=== PATIENT | male | born 1935 | race African-American/Black ===

== ENCOUNTER 2016-12-09 22:23 | Emergency (ER) | payer MEDICARE, BC ==
[2016-12-09] MEDS ORDERED: PREDNISONE 20 MG TABLET PO ONE (23:54)
[2016-12-09] MEDS ORDERED: CEPHALEXIN 500 MG CAPSULE PO ONE (23:54)
[2016-12-09] MEDS ORDERED: FAMOTIDINE 20 MG TABLET PO ONE (23:55)
--- NOTE | 2016-12-09 23:58 | ER Document Report ---
HPI - HPI Patient complains to provider of: Insect sting Pain Level: Denies Context: Patient is a 81-year-old male that comes emergency department for chief complaint of insect sting, happened yesterday, he states that he has two swollen itchy areas (one on his arm, and one on his back). He states that he saw an insect flying around him but he is not sure what it was. He denies any snakebite, he was working in bushes when this happened and he did see insects. He states he is up-to-date on his tetanus. He denies diabetes. He denies any other symptoms. He denies history of the same. Past Medical History - General Information source: Patient - Social History Smoking Status: Never Smoker Frequency of alcohol use: None Drug Abuse: None Lives with: Alone Family History: Reviewed & Not Pertinent - Past Medical History Cardiac Medical History: Reports: Hx Hypertension Renal/ Medical History: Denies: Hx Peritoneal Dialysis - Immunizations Immunizations up to date: Yes Hx Diphtheria, Pertussis, Tetanus Vaccination: Yes Vertical Provider Document - CONSTITUTIONAL General Appearance: WD/WN, No Apparent Distress - HEENT HEENT: Atraumatic, Normal ENT Exam, Normocephalic - NECK Neck: Normal Inspection - RESPIRATORY Respiratory: Breath Sounds Normal, No Respiratory Distress O2 Sat by Pulse Oximetry: 96 - CARDIOVASCULAR Cardiovascular: Regular Rate, Regular Rhythm - GI/ABDOMEN Gastrointestinal: Abdomen Soft, Abdomen Non-Tender - MUSCULOSKELETAL/EXTREMETIES Musculoskeletal/Extremeties: PATRICIA FROM Notes: There is a oval-shaped area of soft tissue swelling over the left lateral forearm approximately, there is also an area in the left upper back just posterior to the axilla with the same appearance but also has excoriation and mild erythema. No induration, fluctuance, or other abnormality noted. Normal UE and LE ROM, normal distal N/V exam. Course - Re-evaluation Re-evalutation: Has obviously scratched the localized swelling on his back, concern because of this for potential cellulitis over the area. No erythema over the area, no significant heat, induration, or fluctuance noted. ENT and lung exam. No evidence of anaphylaxis. Colitis tissue swelling from suspected insect bite/ sting. Patient will be given Keflex in addition to treatment for the immune response, he states satisfaction with this, he states that he plans to see his primary care on follow-up and return if he worsens in any way. Patient is very energetic and young appearing for his age - Vital Signs Vital signs: Temp Pulse Resp BP Pulse Ox 97.6 F 62 16 174/93 H 96 12/09/16 22:26 12/09/16 22:26 12/09/16 22:26 12/09/16 22:26 12/09/16 22:26 Discharge - Discharge Clinical Impression: Insect sting, Forearm swelling, Localized swelling of back Condition: Stable Disposition: HOME, SELF-CARE Additional Instructions: Examination shows localized swelling secondary to the insect sting, because of the scratching take the antibiotic as prescribed to completion; take the prednisone to completion. Take the Zyrtec and Pepcid for the next 7 days. Follow-up with primary care within the next several days. No blood pressure was elevated tonight, this needs to be rechecked routinely. Return immediately if you develop any concerning or worsening symptoms including spreading swelling, developing redness, fever, throat swelling, or any other concerning symptoms. Prescriptions: Cephalexin Monohydrate [Keflex 500 mg Capsule] 500 mg PO QID #28 capsule Cetirizine HCl [Zyrtec 10 mg Tablet] 1 tab PO DAILY #30 tablet Famotidine [Pepcid 20 mg Tablet] 20 mg PO DAILY #12 tablet Prednisone [Deltasone 10 mg Tablet] 10 mg PO ASDIR PRN #21 tablet PRN Reason: Forms: Elevated Blood Pressure
[2016-12-10 00:37] VITALS: BP 176/93
== END 2016-12-10 00:35 | disposition home or self-care (01) ==
LOC: ER 22:23
DX: T63.481A Toxic effect of venom of other arthropod, accidental (unintentional), initial encounter (principal); M79.89 Other specified soft tissue disorders; L29.8 Other pruritus; I10 Essential (primary) hypertension
CPT/HCPCS: 99281; A9270 ×3; J7512